=== PATIENT | female | born 1960 | race Caucasian/White ===

== ENCOUNTER 2021-09-21 02:20 | Emergency (ER) | payer OTHER ==
[2021-09-21 02:29] VITALS: BP 158/87; PULSE 72; RESP 19; TEMP 98.6
--- NOTE | 2021-09-21 03:05 | ED ---
Fall HPI <Ean Travis - Last Filed: 09/21/21 05:28> - General Source: patient, RN notes reviewed Mode of arrival: wheelchair - History of Present Illness MD Complaint: fall <Henrry Hull - Last Filed: 09/21/21 16:13> - General Chief Complaint: Fall Stated Complaint: fall, hit head & knee Time Seen by Provider: 09/21/21 02:33 - History of Present Illness Initial Comments: This is a pleasant 60-year-old female who sustained a head injury just prior to arrival. Patient took her dog out side and was pulled. Patient ended up falling and striking her head against a brick wall. There was no loss of consciousness although the patient is complaining of headache to the left parietal region is also complaining of pain to the left neck. Exacerbated by movement. There has been some nausea but no vomiting. She denies any vision or hearing changes. No numbness or tingling. Complaining of some pain to the left knee as well. Is able to ambulate. Patient on baby aspirin but no other anticoagulants. no fever or chills, no changes in vision or hearing, no sore throat or difficulty with speech, no chest pain or shortness of breath, no abdominal pain, no nausea or vomiting, no changes in urination or bowel movements, no numbness or tingling, no extremity pain, no skin rashes or lesions. (Henrry Hull) - Related Data Allergies Allergy/AdvReac Type Severity Reaction Status Date / Time antipyrine Allergy Rash/Hives Verified 09/21/21 02:30 [From Otic Care (polycosanol)] benzocaine Allergy Rash/Hives Verified 09/21/21 02:30 [From Otic Care (polycosanol)] cephalexin [From Keflex] Allergy Rash/Hives Verified 09/21/21 02:30 Penicillins Allergy Rash/Hives Verified 09/21/21 02:30 policosanol combination no.1 Allergy Rash/Hives Verified 09/21/21 02:30 [From Otic Care (polycosanol)] Sulfa (Sulfonamide Allergy Rash/Hives Verified 09/21/21 02:30 Antibiotics) Review of Systems ROS Other: All systems not noted in ROS Statement are negative. <Ean Travis - Last Filed: 09/21/21 05:28> ROS Other: All systems not noted in ROS Statement are negative. <Henrry Hull Last Filed: 09/21/21 16:13> ROS Statement: Those systems with pertinent positive or pertinent negative responses have been documented in the HPI. Past Medical History Past Medical History: Hypertension, Thyroid Disorder History of Any Multi-Drug Resistant Organisms: None Reported Additional Past Surgical History / Comment(s): left knee surgery Past Psychological History: No Psychological Hx Reported Smoking Status: Never smoker Past Alcohol Use History: None Reported Past Drug Use History: None Reported <Henrry Hull Filed: 09/21/21 16:13> General Exam General appearance: alert, in no apparent distress Head exam: Present: atraumatic, normocephalic, normal inspection Eye exam: Present: normal appearance, PERRL, EOMI. Absent: scleral icterus, conjunctival injection, periorbital swelling ENT exam: Present: normal exam, normal oropharynx, mucous membranes dry, mucous membranes moist, normal external ear exam Neck exam: Present: normal inspection, full ROM. Absent: tenderness, meningismus, lymphadenopathy Respiratory exam: Present: normal lung sounds bilaterally. Absent: respiratory distress, wheezes, rales, rhonchi, stridor Cardiovascular Exam: Present: regular rate, normal rhythm, normal heart sounds. Absent: systolic murmur, diastolic murmur, rubs, gallop, clicks GI/Abdominal exam: Present: soft, normal bowel sounds. Absent: distended, tenderness, guarding, rebound, rigid Extremities exam: Present: normal inspection, full ROM, normal capillary refill. Absent: tenderness, pedal edema, joint swelling, calf tenderness Back exam: Present: normal inspection Neurological exam: Present: alert, oriented X3, CN II-XII intact Psychiatric exam: Present: normal affect, normal mood Skin exam: Present: warm, dry, intact, normal color. Absent: rash <Henrry Hull Filed: 09/21/21 16:13> Course Vital Signs 09/21/21 02:25 Temperature 98.6 F Pulse Rate 72 Respiratory 19 Rate Blood Pressure 158/87 O2 Sat by Pulse 98 Oximetry Medical Decision Making - Radiology Data Radiology results: report reviewed, image reviewed <Henrry Hull Filed: 09/21/21 16:13> - Medical Decision Making Patient endorsed to the ED attending physician, Dr. Watson At 3 AM for further evaluation and disposition. Suspect patient has a closed head injury. Possible mild concussion. However the patient does have a headache and is describing a significant mechanism. Due to the neck pain and significant mechanism I'm going to order a computed tomography scan of the head and neck. The case was discussed in detail with ED attending physician. Presentation, findings, treatment plan discussed in detail. Media Supervisor Dr. Travis (Henrry Hull) Disposition Time of Disposition: 05:30 <Ean Travis - Last Filed: 09/21/21 05:28> Is patient prescribed a controlled substance at d/c from ED?: No <Henrry Hull - Last Filed: 09/21/21 16:13> Clinical Impression: Fall, Closed head injury, Contusion of left knee, initial encounter Disposition: HOME SELF-CARE Condition: Stable Instructions (If sedation given, give patient instructions): Fall Prevention for Older Adults (ED), Head Injury (ED), Contusion in Adults (ED) Additional Instructions: review the head injury instructions. Follow-up with your regular physician as directed. Return to the ER immediately if any symptoms worsen, new symptoms arise, or any other problems develop. Referrals: Barrington Bah MD [Primary Care Provider] - 1-2 days
--- NOTE | 2021-09-21 03:25 | XR ---
EXAM: XR Left Knee, 3 Views CLINICAL HISTORY: ITS.REASON XR Reason: left knee pain TECHNIQUE: Three views of the left knee. COMPARISON: No previous studies. FINDINGS: Bones/joints: Moderate to severe osteoarthritic changes about the left knee joint are noted. No acute fracture, dislocation, or destructive process. Small left knee suprapatellar joint effusion. Soft tissues: Soft tissues are unremarkable. IMPRESSION: 1. Moderate osteoarthritic changes. 2. Small left knee suprapatellar joint effusion.
--- NOTE | 2021-09-21 05:27 | CT ---
EXAM: CT Head Without Intravenous Contrast CLINICAL HISTORY: ITS.REASON CT Reason: fall, head injury, neck pain TECHNIQUE: Axial computed tomography images of the head/brain without intravenous contrast. CTDI is 31.2 mGy and DLP is 757.35 mGy-cm. This CT exam was performed using one or more of the following dose reduction techniques: automated exposure control, adjustment of the mA and/or kV according to patient size, and/or use of iterative reconstruction technique. COMPARISON: No relevant prior studies available. FINDINGS: Brain: Unremarkable. No hemorrhage. No significant white matter disease. No edema. Ventricles: Unremarkable. No ventriculomegaly. Bones/joints: Hyperostosis frontalis interna. No acute fracture. Soft tissues: Mild soft tissue swelling over the left forehead. Sinuses: Unremarkable as visualized. No acute sinusitis. Mastoid air cells: Unremarkable as visualized. No mastoid effusion. IMPRESSION: No evidence of acute intracranial pathology. EXAM: CT Cervical Spine Without Intravenous Contrast CLINICAL HISTORY: ITS.REASON CT Reason: fall, head injury, neck pain TECHNIQUE: Axial computed tomography images of the cervical spine without intravenous contrast. CTDI is 31.2 mGy and DLP is 757.35 mGy-cm. This CT exam was performed using one or more of the following dose reduction techniques: automated exposure control, adjustment of the mA and/or kV according to patient size, and/or use of iterative reconstruction technique. COMPARISON: No relevant prior studies available. FINDINGS: Vertebrae: Unremarkable. No acute fracture. Discs/spinal canal/neural foramina: Moderate disc degeneration at C5-6, C6-7 and C7-T1. No acute findings. No spinal canal stenosis. Soft tissues: Minimal to mild calcified atherosclerotic disease of the carotid bifurcations. Calcified right thyroid nodules. IMPRESSION: No evidence of acute cervical spine pathology.
== END 2021-09-21 05:36 | disposition home or self-care (01) ==
LOC: EC 02:20
DX: S80.02XA Contusion of left knee, initial encounter (principal); I10 Essential (primary) hypertension; E07.9 Disorder of thyroid, unspecified; Z79.899 Other long term (current) drug therapy; Z88.0 Allergy status to penicillin; Z88.4 Allergy status to anesthetic agent; Z88.1 Allergy status to other antibiotic agents; Z88.2 Allergy status to sulfonamides; W22.09XA Striking against other stationary object, initial encounter
CPT/HCPCS: 70450; 72125; 99284